=== PATIENT | female | born 1970 | race African-American/Black ===

== ENCOUNTER 2022-12-29 22:56 | Emergency (ER) | payer OTHER ==
[2022-12-29] MEDS ORDERED: LISINOP/HCTZ1 TAB PO (23:12)
[2022-12-29 23:15] VITALS: BP 121/83
[2022-12-29 23:30] VITALS: BP 122/68
[2022-12-29 23:33] LABS: BASO% 0.3 % (0-3); EOS% 0.5 % (0-8); HEMATOCRIT 40.2 % (37.0-47.0); HEMOGLOBIN 12.9 g/dl (12.0-16.0); IMMATURE GRANULOCYTES 0.2 % (0.0-5.0); LYMPH% 49.1 % (15-41); MEAN CORPUSCULAR HGB 29.2 pG CALC (26.0-32.0); MEAN CORPUSCULAR HGB CONC 32.1 g/dL CAL (32.0-36.0); MONO% 11.9 % (2-13); NEUT# 2.22 thou/uL (2.00-7.15); RED BLOOD COUNT 4.42 mill/uL (4.20-5.60); RED CELL DISTRI WIDTH 12.9 % (11.5-15.5)
[2022-12-29 23:44] LABS: ALBUMIN 4.4 g/dL (3.2-5.0); ALKALINE PHOSPHATASE 79 u/l (38-126); ANION GAP 10 (6-22 (CALC)); BILIRUBIN, TOTAL 1.1 mg/dL (0.02-1.3); BUN 13 mg/dL (7-17); BUN/CREATININE RATIO 13 (12-20 (CALC)); CARBON DIOXIDE 32 mmol/l (22-30); CHLORIDE 100 mmol/l (95-108); GFR FOR AFR.AMER. > 60 ML/MIN (>=60 (CALC)); GFR OTHER RACES 58 ML/MIN (>=60 (CALC)); POTASSIUM 3.1 mmol/l (3.5-5.1); SGOT/AST 43 u/l (14-36); SODIUM 140 mmol/l (137-146); TOTAL PROTEIN 7.9 g/dL (6.3-8.2)
[2022-12-29 23:45] VITALS: BP 113/76
[2022-12-30] VITALS: BP 117/80
[2022-12-30] MEDS ORDERED: ZOFRAN4 MG/TAB PO (00:10)
[2022-12-30 00:15] VITALS: BP 123/78
[2022-12-30 00:18] VITALS: BP 123/78
== END 2022-12-30 00:25 | disposition home or self-care (01) | DRG 392 ==
LOC: ED 22:56
PROVIDERS: Emergency Medicine
DX: R11.0 Nausea (principal); E87.6 Hypokalemia; I10 Essential (primary) hypertension